=== PATIENT | female | born 2000 | race African-American/Black ===

== ENCOUNTER 2021-05-15 09:57 | Day surgery (SDC) | payer OTHER ==
[~2021-05-15] VITALS: Ht 154.9 cm; Wt 58.5 kg
[2021-05-15 10:40] LABS: HEMATOCRIT 37.9 % (36.0-48.0); MCH 26.3 pg (26.0-34.0); MCHC 31.6 g/dL (31.0-37.0); MCV 83.1 fL (80.0-100.0); MEAN PLATELET VOLUME 8.1 fL (7.4-10.4); RBC 4.56 10x6/uL (4.00-5.40); WBC 5.4 10x3/uL (4.8-10.8)
[2021-05-15 11:00] LABS: HCG SERUM POSITIVE (NEGATIVE)
[2021-05-15] MEDS ORDERED: ZOLOFT50 MG PO (12:37)
[2021-05-15 12:47] VITALS: BP 106/58; Ht 154.9 cm; Wt 58.5 kg
--- NOTE | 2021-05-15 15:18 | NUR ---
PT DISCHARGED VIA W/C, ACCOMPANIED BY THIS NURSE, TO [facility] WITH SIGNIFICANT OTHER DRIVING. ALL BELONGINGS WITH PT.
== END 2021-05-15 15:18 | disposition home or self-care (01) ==
LOC: D.OPS 09:57
PROVIDERS: Anesthesiology; ATTEND Obstetrics & Gynecology Maternal & Fetal Medicine
DX: O03.4 Incomplete spontaneous abortion without complication (principal)